=== PATIENT | female | born 1985 | race Caucasian/White ===

== ENCOUNTER 2020-10-28 10:49 | Emergency (ER) | payer OTHER, SELFPAY ==
[2020-10-28] VITALS (7 sets, daily range): BP systolic 107–120; BP diastolic 69–75; PULSE 72–87; RESP 10–19; TEMP 36.2; O2SAT 95–99
--- NOTE | ~2020-10-28 | XR_ITS ---
EXAMINATION: XR chest 2V DATE: 10/28/2020 11:19 INDICATION: Chest pain TECHNIQUE: PA and lateral views of the chest were obtained. COMPARISON: None FINDINGS: The lungs are clear with no focal airspace opacities, pulmonary edema, pleural effusion or pneumothor ax. The cardiomediastinal silhouette is normal. Mild thoracic spondylosis. IMPRESSION: 1. No acute cardiopulmonary disease. Reviewed, dictated and finalized at location A. [employer]
--- NOTE | 2020-10-28 11:07 | ECG_ITS ---
Measurements Intervals [place] Rate: 71 P: 25 LA: 144 QRS: 38 QRSD: 97 T: 6 QT: 376 QTc: 410 Interpretive Statements SINUS RHYTHM INCOMPLETE RIGHT BUNDLE BRANCH BLOCK BORDERLINE ECG Electronically Signed On 10-28-2020 16:34:14 [employer] by Wilbur Mancia D.O.
[2020-10-28 11:27] LABS: Basophils Absolute Auto 0.05 K/mm3 (0.00-0.10); Basophils Percent Auto 0.6 % (0.0-1.0); Eosinophils Absolute Auto 0.15 K/mm3 (0.02-0.50); Eosinophils Percent Auto 1.7 % (1.0-6.0); Hematocrit 41.5 % (35.0-49.0); Hemoglobin 14.2 g/dL (12.0-15.0); Immature Granulocyte Absolute 0.06 K/mm3 (0.00-0.00); Immature Granulocyte Percent A 0.7 % (0.0-0.0); Lymphocytes Absolute Auto 2.47 K/mm3 (1.10-4.50); Lymphocytes Percent Auto 27.3 % (18.0-42.0); Mean Corpuscular HGB Conc 34.2 g/dL (32.0-36.0); Mean Corpuscular Hemoglobin 31.9 pg (27.0-31.0); Mean Corpuscular Volume 93.3 fL (78.0-102.0); Mean Platelet Volume 9.1 fl (9.2-11.8); Monocytes Absolute Auto 0.59 K/mm3 (0.10-0.90); Monocytes Percent Auto 6.5 % (2.0-11.0); Neutrophils Absolute Auto 5.7 K/mm3 (1.7-7.2); Neutrophils Percent Auto 63.2 % (50.0-70.0); Platelet Count Result 235 K/mm3 (150-420); Red Blood Count 4.45 M/mm3 (4.20-5.40); White Blood Count 9.1 K/mm3 (4.8-10.8)
[2020-10-28 11:39] LABS: Partial Thromboplastin Time 29.6 SEC (23.90-30.70); Prothrombin Time 10.7 Seconds (9.50-12.10)
[2020-10-28 11:41] LABS: BNP < 5.0 pg/mL (0-100)
[2020-10-28 11:43] LABS: Alanine Aminotransferase 18 U/L (14-59); Albumin Level 4.3 g/dL (3.4-5.0); Alkaline Phosphatase 75 U/L (46-116); Anion Gap 8 mmol/L (8-16); Aspartate Amino Transferase 10 U/L (15-37); Bilirubin,Total 0.3 mg/dL (0.00-1.00); Blood Urea Nitrogen 17 mg/dL (7-18); Carbon Dioxide 27 mmol/L (21-32); Chloride 104 mmol/L (98-108); Estimated CRCL calculation 90 ml/min; Estimated Glomerular Filt Rate > 60; Glucose 96 mg/dL (70-99); Lipase 74 U/L (73-393); Osmolality Calculated 289 mOsm/kg (285-295); Potassium 3.9 mmol/L (3.5-5.1); Total Protein 7.7 g/dL (6.4-8.2)
[2020-10-28 11:46] LABS: Appearance Urine Clear (Clear); Bilirubin Urine Negative (Negative); Color Urine Yellow (Yellow); Glucose Urine UA Negative (Negative); Ketones Urine Negative (Negative); Leukocyte Esterase Ur Negative LEU/UL (Negative); Nitrate Urine Negative (Negative); Protein Urine Negative (Negative); Specific Grav Ur 1.015 (1.010-1.020); Urobilinogen Urine 0.2 mg/dL (0.2-1.0)
[2020-10-28 11:49] LABS: Sodium 139 mmol/L (136-145); Troponin I < 4.0 ng/L (0.00-60.4)
[2020-10-28 11:53] LABS: D Dimer 0.43 mg/L (0.19-0.50)
[2020-10-28 11:55] LABS: Add Urine Microscopic? YES; Bacteria Urine Trace /hpf; Blood Urine Trace-Intact (Negative); RBC Urine None seen /hpf (0-2); Squamous Epithelial Cell Urine Rare /hpf (Few); WBC Urine None seen /hpf (0-3)
[2020-10-28 12:01] LABS: Amphetamine Screen Urine Negative (Negative); Barbiturate Screen Urine Negative (Negative); Benzodiazepines Screen Urine Negative (Negative); Cannabinoid Screen Urine Negative (Negative); Cocaine Screen Urine Negative (Negative); Methadone Screen Urine Negative (Negative); Opiate Screen Urine Negative (Negative); Phencyclidine Screen Urine Negative (Negative)
--- NOTE | 2020-10-28 12:22 | ED.CHESTPAIN ---
HPI - Chest Pain General Chief Complaint: Chest Pain Stated Complaint: 35YO female w/ 2 day h.o lower/upper abd pain unrelieved by using TUMS. Patient w. no prior cardiac history is not on any medications, she denies FH of heart related illness. COmes into ER for evaluation, currently pain free. Related Data Allergies Allergy/AdvReac Type Severity Reaction Status Date / Time acetaminophen [Vicodin] Allergy Intermediate Unknown Verified 10/28/20 11:11 hydrocodone [Vicodin] Allergy Intermediate Unknown Verified 10/28/20 11:11 amoxicillin Allergy Hives Verified 10/28/20 11:11 bupropion [From Wellbutrin] AdvReac Other Verified 10/28/20 11:11 Review of Systems Review of Systems: All systems reviewed & are unremarkable except as noted in HPI and below Constitutional: Constitutional: Reports no additional constitutional complaints Cardiovascular: Cardiovascular: Reports chest pain Respiratory: Respiratory: Reports no additional respiratory complaints Gastrointestinal: Gastrointestinal: Reports no additional gastrointestinal complaints Genitourinary: Genitourinary: Reports no additional female genitourinary complaints Musculoskeletal: Musculoskeletal: Reports no additional musculoskeletal complaints Integumentary/Breasts: Skin/Breast: Reports system reviewed and no additional complaints, except as docu Neurologic: Reports system reviewed and no additional complaints, except as documented Psychiatric: Psychiatric: Reports no additional psychiatric complaints Endocrine: Endocrine: Reports no additional endocrine complaints Hematologic/Lymphatic: Hematologic/Lymphatic: Reports no additional hematologic/lymphatic complaints Allergic/Immunologic: Allergic/Immunologic: Reports no additional allergic/immunologic complaints PMFSH Past Medical History Medical History GERD (gastroesophageal reflux disease) Social History Social History Smoking status: Current every day smoker Exam Const: General: healthy appearing and no acute distress Orientation/consciousness: patient oriented x3 HENMT: Head: normal to inspection Eyes: Conjunctivae: conjunctivae normal Pupils: Equal, round and reactive pupils present Neck: Neck: normal visual inspection Chest: Chest palpation & inspection: normal inspection of the chest Resp: Effort & Inspection: normal respiratory effort Cardio: Rate: regular rate Rhythm: regular rhythm GI: Inspection: non-distended Auscultation: normal bowel sounds : General: Yes no CVA tenderness Skin: General skin exam: normal color Rashes: no rashes Neuro: General: patient oriented x3, moves all extremities, no meningeal signs, no focal motor deficits and CN's II-XI intact bilaterally Cranial nerves: Yes Nystagmus not present Speech: normal speech Gait exam (Neuro): Normal gait present Extrem: General: normal to inspection Psych: Appearance: grossly normal Mental Status: mental status grossly normal Affect: normal affect Attitude: cooperative Thought content: Yes Normal thought content present Course Course Emergency Course: Heart Score 1 (Smoking), currently not in pain. Pain improved w/ TUMS. Patient more open to outpt workup with outpt stress testing. Vital Signs Vital signs: Vital Signs Temperature 97.2 F L 10/28/20 11:00 Pulse Rate 87 10/28/20 11:00 Respiratory Rate 19 10/28/20 11:00 Blood Pressure 120/75 10/28/20 11:00 Pulse Oximetry 99 10/28/20 11:00 Temperature 97.2 F L 10/28/20 11:00 Pulse Rate 72 10/28/20 11:31 Respiratory Rate 15 10/28/20 11:31 Blood Pressure 120/73 10/28/20 11:31 Pulse Oximetry 97 10/28/20 11:31 MDM - Chest Pain Medical Records Data Attestation: I reviewed the patient's medical records. Lab Data Attestation: I reviewed the patient's lab results. Result diagrams: 10/28/20 11:21
[2020-10-28] MEDS: MAG HYDROX/ALUMINUM HYD/SIMETH 30 ML, PHENobarb/HYOSCY/ATROPINE/SCOP 32.4 MG, LIDOCAINE... PO (12:30)
== END 2020-10-28 13:16 | disposition home or self-care (01) ==
PROVIDERS: Emergency Provider Family Medicine
DX: K21.9 Gastro-esophageal reflux disease without esophagitis (principal); R07.89 Other chest pain
CPT/HCPCS: 36415; 71046; 80053; 80307; 81001; 83690; 83880; 84484; 85025; 85380; 85610; 85730; 93005; 99283; 99284; A9270

== ENCOUNTER 2021-02-04 08:14 | Emergency (ER) | payer OTHER, SELFPAY ==
--- NOTE | ~2021-02-04 | CT_ITS ---
EXAMINATION: CT abdomen pelvis wo con EXAM DATE: 02/04/2021 09:00 INDICATION: Left flank pain, urinary retention. History of kidney stones. TECHNIQUE: Spiral CT of the abdomen and pelvis was performed without contrast. Axial, coronal and sag ittal images were reviewed. The dose-length product (DLP) for this examination was 189.01 mGy-cm. T he exposure was tailored according to patient size (auto mA exposure control), and iterative reconstr uction (ASIR) was used as additional dose reduction technique. There is no prior study for compariso n. FINDINGS: Duplicated left renal collecting system with mild to moderate hydronephrosis of the inferi or moiety which is obstructed at the ureterovesicular junction from a 2 mm stone. Several other left calyceal stones up to 3 mm in size. The uterus is anteverted and morphologically normal. The bladd er is unremarkable. The liver, spleen, adrenal glands and pancreas are unremarkable. Gallbladder is unremarkable. No biliary obstruction. There is no retroperitoneal or pelvic lymphadenopathy. The appendix is normal. The stomach and small bowel are unremarkable. There is expected amount of c olonic stool. No free intraperitoneal gas. The heart is normal in size. There are no pericardial or pleural effusions. The lung bases are unremarkable. There are no osteoblastic or osteolytic les ions identified. IMPRESSION: 1. Duplicated left renal collecting system with nonobstructing 2 mm stone at the lower moiety UVJ. 2. Left nephrolithiasis. Urologist consultants would appreciate KUB as baseline for follow-up, treatment planning. Reviewed, dictated and finalized at location A. IMPRESSION: 1. Duplicated left renal collecting system with nonobstructing 2 mm stone at t he lower moiety UVJ. 2. Left nephrolithiasis. Urologist consultants would appreciate KUB as baseline for follow-up, treatment planning.
--- NOTE | ~2021-02-04 | XR_ITS ---
EXAMINATION: XR abdomen/kub 1V EXAM DATE: 02/04/2021 09:51 INDICATION: Check for stone, h/o stones, bladder pain/ pressure, dysuria . TECHNIQUE: Frontal projection(s) of the abdomen for interpretation. Correlation is made to CT scan sa me date. FINDINGS: There are 2 punctate densities over expected location of the left UVJ, one of these probabl y the stone seen on CT. Slightly larger phlebolith to the left of this. Left nephrolithiasis identifi ed. Nonobstructive bowel gas pattern. There are no osseous abnormalities identified. IMPRESSION: 1. Possible identification left UVJ stone. 2. Left nephrolithiasis. Reviewed, dictated and finalized at location A.
[2021-02-04 08:20] VITALS: BP 139/79; PULSE 71; RESP 18; TEMP 36.8; O2SAT 97
[2021-02-04] MEDS: ONDANSETRON INJ 4 MG/2 ML VIAL IV PUSH (08:33)
[2021-02-04] MEDS: KETOROLAC 30 MG/ML VIAL (*BKC) IV PUSH (08:34)
[2021-02-04 08:39] LABS: Add Urine Microscopic? YES; Appearance Urine Clear (Clear); Bilirubin Urine Negative (Negative); Blood Urine 2+ (Negative); Color Urine Yellow (Yellow); Glucose Urine UA Negative (Negative); Ketones Urine Negative (Negative); Leukocyte Esterase Ur Negative (Negative); Nitrate Urine Negative (Negative); Protein Urine Negative (Negative); Specific Grav Ur 1.025 (1.010-1.020); Urobilinogen Urine 0.2 mg/dL (0.2-1.0)
[2021-02-04 08:46] LABS: Bacteria Urine 1+ /hpf; Mucus Urine Moderate /lpf; Squamous Epithelial Cell Urine Moderate /hpf (Few); WBC Urine 0-3 /hpf (0-3)
[2021-02-04 08:47] LABS: Pregnancy On Board Control Positive; Urine Pregnancy Test Negative
[2021-02-04 08:50] LABS: Basophils Absolute Auto 0.04 K/mm3 (0.00-0.10); Basophils Percent Auto 0.4 % (0.0-1.0); Eosinophils Absolute Auto 0.24 K/mm3 (0.02-0.50); Eosinophils Percent Auto 2.1 % (1.0-6.0); Hematocrit 41.4 % (35.0-49.0); Hemoglobin 14.3 g/dL (12.0-15.0); Immature Granulocyte Absolute 0.06 K/mm3 (0.00-0.00); Immature Granulocyte Percent A 0.5 % (0.0-0.0); Lymphocytes Absolute Auto 2.67 K/mm3 (1.10-4.50); Lymphocytes Percent Auto 23.8 % (18.0-42.0); Mean Corpuscular HGB Conc 34.5 g/dL (32.0-36.0); Mean Corpuscular Hemoglobin 31.6 pg (27.0-31.0); Mean Corpuscular Volume 91.4 fL (78.0-102.0); Mean Platelet Volume 9.3 fl (9.2-11.8); Monocytes Absolute Auto 0.87 K/mm3 (0.10-0.90); Monocytes Percent Auto 7.8 % (2.0-11.0); Neutrophils Absolute Auto 7.3 K/mm3 (1.7-7.2); Neutrophils Percent Auto 65.4 % (50.0-70.0); Platelet Count Result 239 K/mm3 (150-420); Red Blood Count 4.53 M/mm3 (4.20-5.40); Red Cell Distribution Width 11.3 % (11.6-14.4); White Blood Count 11.2 K/mm3 (4.8-10.8)
--- NOTE | 2021-02-04 08:55 | ED.GENADULT ---
HPI - General Adult General Chief complaint: Abdominal Pain Stated complaint: ABD PAIN VOMITING Time Seen by Provider: 02/04/21 08:35 Source: patient Mode of arrival: ambulatory Limitations: no limitations History of Present Illness HPI narrative: Patient comes in with left lower quadrant pain since this am, about 6 am. Pain has been moderately severe and ongoing since then associated with nausea. Nothing she has done hat home has decreased the pain. Related Data Allergies Allergy/AdvReac Type Severity Reaction Status Date / Time hydrocodone [Vicodin] Allergy Intermediate Unknown Verified 10/28/20 11:11 amoxicillin Allergy Hives Verified 10/28/20 11:11 bupropion [From Wellbutrin] AdvReac Other Verified 10/28/20 11:11 Review of Systems Constitutional: Constitutional: Reports no additional constitutional complaints Eyes: Eyes: Reports no additional eye complaints ENT: Reports system reviewed and no additional complaints, except as documented Cardiovascular: Cardiovascular: Reports no additional cardiovascular complaints Respiratory: Respiratory: Reports no additional respiratory complaints Gastrointestinal: Gastrointestinal: Reports no additional gastrointestinal complaints Genitourinary: Genitourinary: Reports no additional female genitourinary complaints Musculoskeletal: Musculoskeletal: Reports no additional musculoskeletal complaints Integumentary/Breasts: Skin/Breast: Reports system reviewed and no additional complaints, except as docu Neurologic: Reports system reviewed and no additional complaints, except as documented Psychiatric: Psychiatric: Reports no additional psychiatric complaints Endocrine: Endocrine: Reports no additional endocrine complaints Hematologic/Lymphatic: Hematologic/Lymphatic: Reports no additional hematologic/lymphatic complaints Allergic/Immunologic: Allergic/Immunologic: Reports no additional allergic/immunologic complaints [facility] Surgical History Surgical History (Updated 02/04/21 @ 16:00 by Trevin Garcia MD) H/O tubal ligation Family History Family History (Updated 02/04/21 @ 16:02 by Trevin Garcia MD) Mother CHF (congestive heart failure) Diabetes mellitus Father Bipolar 1 disorder Social History Social History (Updated 02/04/21 @ 16:02 by Trevin Garcia MD) Smoking packs per day: 1 Smoking cigarettes per day: 20.0 Smoking status: Current every day smoker Tobacco type: cigarettes Exam Const: General: alert Orientation/consciousness: patient oriented x3 HENMT: Head: normal to inspection Ears: external ears normal General nose exam: Normal external nose present Mouth: Yes Normal oral and palatal mucosa present Throat: posterior oropharynx normal Eyes: Conjunctivae: conjunctivae normal Neck: Neck: normal visual inspection Chest: Chest palpation & inspection: normal inspection of the chest Resp: Effort & Inspection: normal respiratory effort Auscultation: clear to auscultation bilaterally Cardio: Rate: regular rate Rhythm: regular rhythm GI: GI Palp: Yes Soft to palpation (bowel sounds decreased) Percussion: Yes normal to percussion Back/Spine/Pelvis: Other: mild CVA tenderness on left side Skin: General skin exam: normal color Neuro: General: patient oriented x3 and moves all extremities Extrem: General: normal to inspection Psych: Appearance: grossly normal Mental Status: mental status grossly normal Thought content: Yes Normal thought content present Course Course Emergency Course: Labs were reviewed. Ct was returned, report reviewed. She felt much better after being given Ketorolac 30mg IV and Zofran 4mg IV. She was discharged with instructions to follow up with a urologist as soon as possible. She was sent home with scripts for ketorolac 10mg one qid prn #20, Zofran 4mg ODT one q 4 hr prn, and Hydrocodone 5/325 one q 4hr prn #6. Vital Signs Vital signs: Vital Signs Temperature 36.8 C 02/04/21 08:20
[2021-02-04 09:05] LABS: Alanine Aminotransferase 37 U/L (14-59); Alkaline Phosphatase 74 U/L (46-116); Anion Gap 9 mmol/L (8-16); Aspartate Amino Transferase 18 U/L (15-37); Bilirubin,Total 0.5 mg/dL (0.00-1.00); Blood Urea Nitrogen 12 mg/dL (7-18); Carbon Dioxide 24 mmol/L (21-32); Chloride 103 mmol/L (98-108); Estimated Glomerular Filt Rate > 60; Glucose 152 mg/dL (70-99); Osmolality Calculated 284 mOsm/kg (285-295); Potassium 3.9 mmol/L (3.5-5.1); Sodium 136 mmol/L (136-145); Total Protein 7.2 g/dL (6.4-8.2)
[2021-02-04 09:10] LABS: Calcium 8.9 mg/dL (8.5-10.1)
[2021-02-04 09:44] VITALS: BP 107/78
== END 2021-02-04 09:46 | disposition home or self-care (01) ==
PROVIDERS: Emergency Provider Emergency Medicine; PCP Emergency Medicine
DX: N20.0 Calculus of kidney (principal)
CPT/HCPCS: 36415; 74018; 74176; 80053; 81001; 81025; 85025; 96374; 96375; 99283; 99284; J1885; J2405